=== PATIENT | female | born 1950 | race Caucasian/White ===

== ENCOUNTER → 2022-12-18 | Outpatient (REF) | payer MEDICARE, OTHER ==
[2022-12-18 17:02] LABS: APPEARANCE, URINE CLEAR (CLEAR); BACTERIA, URINE AUTO NEGATIVE (NEGATIVE); BILIRUBIN, URINE AUTO NEGATIVE (NEGATIVE); BLOOD, URINE BLOOD NEGATIVE (NEGATIVE); COLOR, URINE YELLOW (YELLOW); GLUCOSE, URINE (UA) AUTO NEGATIVE (NEGATIVE); KETONE, URINE AUTO NEGATIVE (NEGATIVE); LEUKOCYTE ESTERASE, URINE AUTO 1+ (NEGATIVE); NITRITE, URINE AUTO NEGATIVE (NEGATIVE); PROTEIN, URINE AUTO NEGATIVE (NEGATIVE); RBC, URINE AUTO 0 /HPF (0-3); SPECIFIC GRAVITY URINE AUTO 1.009 (1.002-1.035); SQUAMOUS EPITHELIAL CELL UR AU 0 /HPF (0-6); UROBILINOGEN, URINE AUTO 0.2 mg/dL (0.0-2.0); WBC, URINE AUTO 6 /HPF (0-3)
[2022-12-18 17:11] LABS: TOTAL PROTEIN,RANDOM URINE 8.7 MG/DL (0.0-14.0)
[2022-12-18 17:15] LABS: CREATININE,RANDOM URINE 72.5 MG/DL
== END ==
LOC: M SFHCRHEU 13:10
PROVIDERS: ATTEND Internal Medicine Rheumatology
DX: M06.09 Rheumatoid arthritis without rheumatoid factor, multiple sites (principal); H04.123 Dry eye syndrome of bilateral lacrimal glands; Z79.899 Other long term (current) drug therapy

== ENCOUNTER → 2022-12-24 | Outpatient (REF) | payer MEDICARE, OTHER | LOC: M SFHCRHEU 09:23 | PROVIDERS: ATTEND Internal Medicine Rheumatology | DX: M06.09 Rheumatoid arthritis without rheumatoid factor, multiple sites (principal); H04.123 Dry eye syndrome of bilateral lacrimal glands; Z79.899 Other long term (current) drug therapy ==

== ENCOUNTER → 2023-09-24 | Outpatient (REF) | payer MEDICARE, BC | LOC: M SFHCRHEU 10:10 | PROVIDERS: ATTEND Internal Medicine Rheumatology | DX: M06.09 Rheumatoid arthritis without rheumatoid factor, multiple sites (principal); H04.123 Dry eye syndrome of bilateral lacrimal glands; Z79.899 Other long term (current) drug therapy ==

== ENCOUNTER → 2024-01-28 | Outpatient (CLI) | payer MEDICARE, BC | LOC: M RAD 11:22 | PROVIDERS: ATTEND Surgery | DX: I83.893 Varicose veins of bilateral lower extremities with other complications (principal) ==

== ENCOUNTER → 2024-03-16 | Outpatient (CLI) | payer MEDICARE, BC | LOC: M RAD 10:23 | PROVIDERS: ATTEND Nurse Practitioner Family | DX: I83.813 Varicose veins of bilateral lower extremities with pain (principal) ==

== ENCOUNTER → 2024-07-19 | Outpatient (CLI) | payer MEDICARE, BC | LOC: M SOG 07:51 | PROVIDERS: ATTEND Physician Assistant | DX: M79.671 Pain in right foot (principal) ==

== ENCOUNTER → 2024-08-21 | Outpatient (CLI) | payer MEDICARE, BC | LOC: M SOG 07:54 | PROVIDERS: ATTEND Physician Assistant | DX: S92.354A Nondisplaced fracture of fifth metatarsal bone, right foot, initial encounter for closed fracture (principal) ==